=== PATIENT | female | born 1935 | race Caucasian/White ===

== ENCOUNTER 2016-08-03 08:12 | Inpatient (IN) | payer BC, OTHER ==
[2016-07-26 08:48] VITALS: BMI 21.0
--- NOTE | 2016-07-26 09:20 | PAT Medication Instructions ---
Service Date July 26, 2016. Current Home Medication List Hydrochlorothiazide (Hctz), 12.5 MG PO QAM Levothyroxine Sodium (Levothyroxine Sodium), 1 TAB PO QAM Multiple Vitamins W/ Minerals (Centrum Silver 50+Women), 1 TAB PO noon Ocuvite Preservision (Ocuvite Preservision), 1 TAB PO noon Medication Instructions For Your Scheduled Surgery - Hold the following medications the morning of surgery: Multiple Vitamins W/ Minerals (Centrum Silver 50+Women), 1 TAB PO noon Ocuvite Preservision (Ocuvite Preservision), 1 TAB PO noon Hydrochlorothiazide (Hctz), 12.5 MG PO QAM - Take the following medications the morning of surgery with a sip of water: Levothyroxine Sodium (Levothyroxine Sodium), 1 TAB PO QAM If you have any questions please call us at [phone] or [phone] ( Rain) or [phone]
[2016-07-26 09:46] LABS: BASO % 1.1 %; BASO ABS # 0.05 K/uL (0-0.2); COMPLETE YES; EOS % 2.2 %; HEMATOCRIT 41.6 % (37-47); IG% 0.2 %; LYMPH % 33.8 %; LYMPH ABS # 1.52 K/uL (1.2-3.4); MEAN CELL VOLUME 89.1 fL (80-100); MEAN CORPUSCULAR HEMOGLOBIN 29.8 pg (25-34); MEAN CORPUSCULAR HGB CONC 33.4 g/dl (32-36); MEAN PLATELET VOLUME 8.8 fL (7.4-10.4); MONO % 8.4 %; NEUT % 54.3 %; PLATELET COUNT 220 K/uL (130-400); RED BLOOD COUNT 4.67 M/uL (4.2-5.4)
[2016-07-26 09:50] LABS: URINE APPEARANCE CLEAR (CLEAR); URINE BILIRUBIN NEG (NEG); URINE COLOR YELLOW; URINE NITRITE POS (NEG); URINE PH 6.5 (4.5-7.5); UROBILINOGEN NEG (NEG)
[2016-07-26 09:52] LABS: MANUAL MICROSCOPIC REQUIRED? NO; REVIEW REQ? NO
[2016-07-26 09:56] LABS: INR 1.1 (0.9-1.1); PARTIAL THROMBOPLASTIN RATIO 1.1; PROTHROMBIN TIME (PATIENT) 11.4 SECONDS (9.0-12.0)
--- NOTE | 2016-07-26 10:18 | DIAGNOSTIC IMAGING REPORT ---
CHEST PREADMISSION(PA/LAT) CLINICAL HISTORY: Preoperative chest COMPARISON STUDY: No previous studies for comparison. FINDINGS: The cardiac and mediastinal contours are normal. There is no evidence of focal pulmonary consolidation. There is no evidence of failure. No pleural effusions are visualized.[ IMPRESSION: No active disease in the chest. Electronically signed by: Jacinto Castañeda M.D. 07/26/2016 10:17 AM Dictated Date/Time: 07/26/2016 10:17 AM
[2016-07-26 10:58] LABS: CALCIUM 8.8 mg/dl (8.5-10.1); CREATININE 0.68 mg/dl (0.60-1.20); POTASSIUM 3.8 mmol/L (3.5-5.1)
[2016-07-26 11:04] LABS: ESTIMATED AVERAGE GLUCOSE 103 mg/dl; HA1C FLAG Normal (Normal)
--- NOTE | 2016-08-02 09:55 | HISTORY & PHYSICAL EXAMINATION ---
DATE OF ADMISSION: 08/03/2016 CHIEF COMPLAINT: Right knee pain. HISTORY OF PRESENT ILLNESS: The patient is an 81-year-old female with known severe osteoarthritis about her right knee. Her pain and disability requires her to use a walker for daily ambulation. She has failed conservative care in the past and now desires to proceed with right total knee arthroplasty. PAST MEDICAL HISTORY: Hypertension, hyperthyroidism, gastroesophageal reflux disease, colitis, hypothyroidism, depressive disorder. PAST SURGICAL HISTORY: Cholecystectomy, right oophorectomy, right knee arthroscopy. MEDICATIONS: Celebrex 200 mg daily, hydrochlorothiazide 12.5 mg daily, levothyroxine 150 mcg daily, sertraline 25 mg daily. ALLERGIES: CORTISONE CAUSES HYPERACTIVITY. SOCIAL HISTORY AND REVIEW OF SYSTEMS: Noncontributory. PHYSICAL EXAMINATION: GENERAL: Well-nourished, well-developed, thin elderly female who appears her stated age. HEAD, EYES, EARS, NOSE, AND THROAT: Normocephalic, atraumatic, extraocular movements intact, oropharynx pink and moist. NECK: Supple without adenopathy. LUNGS: Clear to auscultation. HEART: Regular rate and rhythm. ABDOMEN: Soft, nontender, nondistended. EXTREMITIES: The upper extremity within normal limits. The right knee has a slight valgus alignment. She complains primarily of lateral compartment pain. Her range of motion from 0 to 130 degrees. She has mild crepitus with range of motion. X-RAYS: X-rays were reviewed. She has a slight valgus aligned knee. She has bone on bone arthritis of the lateral compartment on the flexion view. There is lateral osteophyte formation. There is moderate osteophyte formation about the patellofemoral joint. ASSESSMENT: Right knee degenerative joint disease. PLAN: Risks versus benefits were discussed. Consent was obtained. The patient's primary care physician is Dr. Dillon. Will proceed with right total knee arthroplasty upon preop workup and medical clearance.
[~2016-08-03] VITALS: Ht 162.6 cm; Wt 55.4 kg
[2016-08-03] VITALS (8 sets, daily range): BP systolic 112–195; BP diastolic 61–77; PULSE 53–69; TEMP 36.3–36.5; O2SAT 96–100; Ht 162.6 cm; Wt 55.4 kg
[~2016-08-03 08:12] MED LIST: ACETAMINOPHEN 500 MG TAB PO SCH; ATROPINE SULFATE 0.1 MG/ML 5ML SYR IV PRN; CEFAZOLIN 2000 MG/60 ML D5W 60 ML IV SCH; CeleBREX 200 MG CAP PO SCH; DEXAMETHASONE 4 MG TAB PO SCH; EpHEDrine SULFATE INJ 50 MG/ML AMP IV PRN; FAMOTIDINE 20 MG TAB PO SCH; FENTANYL CITRATE INJ 50 MCG/1 ML 2 ML VIAL IV PRN; GABAPENTIN 300 MG CAP PO SCH; HYDR12.56 PO; LACTATED RINGER'S 1000ML IV SCH; LEVO150T9 PO; METOCLOPRAMIDE HCL 10 MG TAB PO SCH; MULT-1092 PO; MULT-190 PO; ONDANSETRON INJ 2 MG/ML 2 ML VIAL IV PRN
[2016-08-03] MEDS ORDERED: MIDAZOLAM HCL 1 MG/ML 2ML VIAL ONE (09:16)
[2016-08-03] MEDS ORDERED: ONDANSETRON INJ 2 MG/ML 2 ML VIAL ONE (09:16)
[2016-08-03] MEDS ORDERED: FENTANYL CITRATE INJ 50 MCG/1 ML 2 ML VIAL ONE (09:16)
[2016-08-03] MEDS ORDERED: PROPOFOL IV EMULSION 10 MG/ML 20 ML VIAL IV ONE (09:16)
[2016-08-03] MEDS ORDERED: BUPIVACAINE 0.25% 30 ML VIAL ONE (09:20)
[2016-08-03] MEDS ORDERED: BUPIVACAINE 0.5 % 5 MG/1 ML PF 10ML VIAL ONE (09:20)
--- NOTE | 2016-08-03 10:16 | History & Physical Bridge Note ---
H&P Re-Evaluation Bridge Note: I have examined the patient, reviewed the History & Physical and in the interval since the performance of the History & Physical I have noted the following changes of clinical significance: No changes noted
[2016-08-03] MEDS ORDERED: BACITRACIN 50000 UNIT VIAL ONE (10:31)
[2016-08-03] MEDS ORDERED: ORTHO JOINT ANESTHETIC ONE (10:31)
[2016-08-03] MEDS ORDERED: POVIDONE-IODINE OP SOLN 30 ML BTL ONE (10:31)
[2016-08-03] MEDS: TRANEXAMIC ACID INJ 1,000 MG in SODIUM CHLORIDE 0.9% 100ML 100 ML IV SCH ×2 (10:42→13:42)
[2016-08-03] MEDS: ROPIVACAINE 5MG/ML 30 ML 150 MG, BUPIVACAINE/EPINEPHR 0.5% MPF 30 ML, KETOROLAC TROMETH... INFIL SCH ×14 (11:42→12:15)
--- NOTE | 2016-08-03 12:12 | [facility] Post Operative Brief Note ---
Immediate Operative Summary Operative Date August 03, 2016. Pre-Operative Diagnosis Right knee degenerative joint disease Post-Operative Diagnosis Right knee degenerative joint disease Procedure(s) Performed Right total knee arthroplasty Surgeon Dr. Roly Prince Repair Technician Surgeon(s) Royer Crane PA-C Estimated Blood Loss 20ml Findings severe oa and osteoporosis Specimens A: Right knee bone and tissue Complication(s) None Disposition Recovery Room / PACU
--- NOTE | 2016-08-03 12:29 | OPERATIVE REPORT ---
DATE OF OPERATION: 08/03/2016 PREOPERATIVE DIAGNOSIS: Osteoarthritis, right knee. POSTOPERATIVE DIAGNOSIS: Osteoarthritis, right knee. PROCEDURE: Right total knee arthroplasty. SURGEON: Dr. Prince. DISTRIBUTION AGENT: Royer Crane PA-C ANESTHESIA: Spinal. COMPLICATIONS: None. IMPLANTS USED: Femoral size 3 with the pegs, tibia size 2 with post, patella size 33, and tibial poly 9 mm. OPERATION AND FINDINGS: Following induction of spinal anesthesia, the patient's right leg was prepped and draped in the usual sterile manner. Limb was exsanguinated with an Esmarch bandage and tourniquet was inflated to 350 mmHg. A longitudinal incision was made anteriorly. Subcutaneous tissue was sharply dissected. Electrocautery was used for hemostasis. Prepatellar bursa was incised and median parapatellar incision was performed. Patella was everted and the knee was flexed. Fat pad was removed to aid in visualization and the anterior and posterior cruciate ligaments were removed. The medial face of the tibia was cleared of soft tissue first with a Bovie and a Daly elevator. This tissue was retracted posteriorly using a blunt Hohmann. A Rodriguez retractor was used to expose the synovium above on the anterior aspect of the femur and this was removed down to bone. The PSI guide was placed on the distal femur and two pins were placed anteriorly and kept in position and two additional pins were placed distally and removed. The distal femoral cutting block was placed in position and the distal femoral cut was used in the +0 setting. Next, the cutting block was removed and the 3 block was placed in the distal end of the femur. Care was taken to ensure appropriate external rotation and feeler gauge was used to ensure no notching would occur. The femoral block was centered on the distal femur and in the medial and lateral direction and was fixed using two bone screws. The gold pins were then removed. The oscillating saw was used to create the bone cuts and the distal femoral cutting block was removed and the reciprocating saw was used to further trim the femoral cuts as well as a deep in the area for the trochlear groove. Next, posterior condyle remnants were removed. Following this, a meniscal clamp and knife were utilized to remove the anterior portion of both medial and lateral meniscus. The proximal tibia PSI guide was placed into position and the proximal tibial cutting guide was screwed into position. The extra medullary alignment guide was utilized to ensure appropriate alignment. The proximal tibia was cut and the proximal tibial cutting block was removed and this bone fragment was removed. The appropriate guide was used to perform the notch cut on the distal femur and a lamina clinical engineering director and a cochlear knife were utilized to finish both medial and lateral meniscectomies to remove any remnants of the posterior or anterior cruciate ligaments. Following this, the distal femoral component was impacted into position and blunt Darien was used to sublux the tibia anteriorly. The proximal tibia was sized and a size 2 tibial tray was chosen as the size to be used. This was put into position and appropriate external rotation and a double check with extramedullary alignment guide was performed. The canal for the tibial stem was prepared first with a 17 mm drill and then the punch and a mallet and the trial tibial poly was placed. A size 9 was chosen the size to be used. It was brought to extension and the patella was prepared with the patellar reamer. A 33 component was chosen the size to be used. The trial component was placed and knee was taken through a full range of motion and there was found to be no lateral subluxation of the tibia. No lateral release was required. The trials were all removed. The final components were obtained and assembled. Cement was mixed. The knee was thoroughly irrigated and the ortho mix was injected about the knee joint. The final components were cemented into position. After thoroughly suctioning and drying the bone ends, all excess cement was removed. The knee was held in extension while the cement hardened. The wound was irrigated and closed over a Hemovac drain. #1 Vicryl was used to close the extensor mechanism. Subcutaneous tissues closed using 0 Dexon. Skin was closed with davie. Sterile dressing of Adaptic, 4 x 4's, sterile Webril, and Luis was applied. The patient tolerated the procedure well. Due to the complex nature of the procedure, the entire surgery was performed with the operational assistance of Royer Crane PA-C. The prosthetics assistant, under direct supervision, was involved in the actual performance of all aspects of the surgical procedure including hemostasis, tissue retraction and incision, instrument management, patient positioning, and wound closure. DISPOSITION: Recovery room stable. I attest to the content of the Intraoperative Record and any orders documented therein. Any exceptio ns are noted below.
[2016-08-03] MEDS ORDERED: ONDANSETRON INJ 2 MG/ML 2 ML VIAL IV PRN (12:45)
[2016-08-03] MEDS ORDERED: MoRPHine SULFATE 2 MG/ML CARP IV PRN (12:45)
[2016-08-03] MEDS ORDERED: ZOLPIDEM TARTRATE 5 MG TAB PO PRN (12:45)
[2016-08-03] MEDS ORDERED: ALUMINUM/MAGNESIUM/SIMETH (MAALOX MAX) 30 ML UDC PO PRN (12:45)
[2016-08-03] MEDS ORDERED: METOCLOPRAMIDE HCL INJ 5 MG/ML 2 ML VIAL IV PRN (12:45)
[2016-08-03] MEDS ORDERED: OXYCODONE HCL IR 5 MG TAB (IMMEDIATE RELEASE) PO PRN (12:45)
[2016-08-03] MEDS ORDERED: MAGNESIUM HYDROXIDE SUSP 30 ML UDC PO PRN (12:45)
--- NOTE | 2016-08-03 13:06 | DIAGNOSTIC IMAGING REPORT ---
RIGHT KNEE 2 VIEWS History: Right total knee arthroplasty. Degenerative arthritis. Postop. FINDINGS: The patient is status post a right total knee arthroplasty. The hardware is intact. No fracture or dislocation. Skin davie and surgical drains are in place. IMPRESSION: Right total knee arthroplasty. No evidence for hardware complication. Electronically signed by: Naveen Lanza M.D. 08/03/2016 1:04 PM Dictated Date/Time: 08/03/2016 1:04 PM
--- NOTE | 2016-08-03 13:15 | Anesthesiology Progress Note ---
Anesthesia Post Op Note Date & Time August 03, 2016 at 13:15 Vital Signs Pain Intensity: 0 Vital Signs Past 12 Hours Date Time Temp Pulse Resp B/P Pulse Ox O2 Delivery O2 Flow Rate FiO2 08/03/16 12:55 66 16 136/56 100 Mask 10 08/03/16 12:45 58 16 122/47 98 Mask 10 08/03/16 12:38 36.0 62 16 105/50 98 Mask 10 08/03/16 09:01 36.4 69 20 195/72 99 Room Air Notes Mental Status: alert / awake / arousable, participated in evaluation Pt Amnestic to Procedure: Yes Nausea / Vomiting: adequately controlled Pain: adequately controlled Airway Patency, RR, SpO2: stable & adequate BP & HR: stable & adequate Hydration State: stable & adequate Neuraxial Anesthesia: was administered, sensory block is resolving Anesthetic Complications: no major complications apparent
[2016-08-03] MEDS ORDERED: MoRPHine SULFATE 4 MG/ML 1 ML CARP\\VIAL IV PRN (14:45)
[2016-08-03] MEDS: D5W AND 1/2NSS + 20MEQ KCL 1,000 ML IV SCH (16:58)
[2016-08-03] MEDS: KETOROLAC TROMETHAMINE 15 MG/ML VIAL IV. SCH ×2 (16:58→21:28)
[2016-08-03] MEDS: FERROUS GLUCONATE 324 MG TAB PO SCH (16:59)
[2016-08-03] MEDS: CEFAZOLIN IV 1,000 MG in DEXTROSE 5% 50ML 50 ML IV SCH (18:48)
[2016-08-03] MEDS: ACETAMINOPHEN 500 MG TAB PO SCH (18:48)
[2016-08-03] MEDS: DOCUSATE SODIUM 100 MG CAP PO SCH (21:00)
[2016-08-03] MEDS: ASPIRIN 81 MG ECTAB PO SCH (21:27)
[2016-08-04] MEDS: D5W AND 1/2NSS + 20MEQ KCL 1,000 ML IV SCH ×2 (01:44→10:40)
[2016-08-04] MEDS: CEFAZOLIN IV 1,000 MG in DEXTROSE 5% 50ML 50 ML IV SCH (01:44)
[2016-08-04] MEDS: ACETAMINOPHEN 500 MG TAB PO SCH ×3 (01:47→18:02)
[2016-08-04 03:23] VITALS: BP 92/47; PULSE 60; TEMP 36.5; O2SAT 95
[2016-08-04] MEDS: KETOROLAC TROMETHAMINE 15 MG/ML VIAL IV. SCH (03:58)
[2016-08-04] MEDS: LEVOTHYROXINE 150 MCG TAB PO SCH (05:40)
[2016-08-04 06:32] LABS: HEMATOCRIT 30.4 % (37-47); MEAN CELL VOLUME 88.6 fL (80-100); MEAN CORPUSCULAR HGB CONC 33.9 g/dl (32-36); MEAN PLATELET VOLUME 9.1 fL (7.4-10.4); PLATELET COUNT 200 K/uL (130-400); RED BLOOD COUNT 3.43 M/uL (4.2-5.4); WHITE BLOOD COUNT 12.52 K/uL (4.8-10.8)
[2016-08-04 07:04] LABS: BUN/CREATININE RATIO 28.5 (10-20); CALCIUM 7.8 mg/dl (8.5-10.1); CREATININE 0.93 mg/dl (0.60-1.20); POTASSIUM 4.3 mmol/L (3.5-5.1)
[2016-08-04 07:48] VITALS: BP 108/51; PULSE 62; TEMP 36.4; O2SAT 96
--- NOTE | 2016-08-04 08:13 | Anesthesiology Progress Note ---
Anesthesia Post Op Note Date & Time August 04, 2016 at 08:14 Vital Signs Pain Intensity: 0.0 Vital Signs Past 12 Hours Date Time Temp Pulse Resp B/P Pulse Ox O2 Delivery O2 Flow Rate FiO2 08/04/16 07:48 36.4 62 18 108/51 96 Room Air 08/04/16 07:32 Room Air 08/04/16 03:23 36.5 60 16 92/47 95 Room Air 08/03/16 23:26 36.5 56 16 126/67 97 Room Air 08/03/16 23:15 Room Air Notes Mental Status: alert / awake / arousable, participated in evaluation Pt Amnestic to Procedure: Yes Nausea / Vomiting: adequately controlled Pain: adequately controlled Airway Patency, RR, SpO2: stable & adequate BP & HR: stable & adequate Hydration State: stable & adequate Neuraxial Anesthesia: was administered, sensory block resolved Anesthetic Complications: no major complications apparent
--- NOTE | 2016-08-04 08:37 | Orthopedic Progress Note ---
Orthopedic Progress Note Date of Service August 04, 2016. Subjective Post OP Day: 1 Reports: complaints ("my foot is numb"), feeling well, Denies: SOB, calf pain, chest pain, light headedness, nausea / vomiting Additional Notes: Awake, alert. States that her foot is numb and she is unable to move it. [place] that she was able to move her toes a little yesterday but today she is unable to. No other complaints. Pain controlled at present. Objective calves soft nontender, dressing C/D/I, A&O x3, toes mobile, hemovac drainage ( 130ml latest shift) Date Time Temp Pulse Resp B/P Pulse Ox O2 Delivery O2 Flow Rate FiO2 08/04/16 07:48 36.4 62 18 108/51 96 Room Air 08/04/16 07:32 Room Air 08/04/16 03:23 36.5 60 16 92/47 95 Room Air 08/03/16 23:26 36.5 56 16 126/67 97 Room Air 08/03/16 23:15 Room Air 08/03/16 20:04 36.3 63 16 130/70 96 Room Air 08/03/16 17:09 36.3 56 18 145/75 99 Nasal Cannula 2.0 08/03/16 16:15 Nasal Cannula 2.0 08/03/16 16:10 36.3 55 16 112/61 100 Nasal Cannula 2.0 08/03/16 15:00 56 18 128/77 99 2.0 08/03/16 14:28 53 18 123/65 98 Nasal Cannula 2.0 08/03/16 14:00 99 Nasal Cannula 2.0 08/03/16 14:00 99 Nasal Cannula 2.0 08/03/16 14:00 36.4 57 12 114/65 99 Nasal Cannula 2.0 08/03/16 13:30 36.3 54 14 119/50 98 Nasal Cannula 2 08/03/16 13:15 56 12 139/61 99 Mask 10 08/03/16 13:05 53 12 133/50 100 Mask 10 08/03/16 12:55 66 16 136/56 100 Mask 10 08/03/16 12:45 58 16 122/47 98 Mask 10 08/03/16 12:38 36.0 62 16 105/50 98 Mask 10 08/03/16 09:01 36.4 69 20 195/72 99 Room Air Laboratory Results 24 Hours: Test 08/04/16 05:46 Hematocrit 30.4 % Hemoglobin 10.3 g/dL Assessment & Plan Assessment: POD 1 s/p Right TKA Foot drop Hypertension, hyperthyroidism, gastroesophageal reflux disease, colitis, hypothyroidism, depressive disorder Plan: Foot drop likely due to intra op injection - follow for now. Sensation/ movement usually returns in 48 hours. May need AFO brace if it continues. PT/OT Trying to decide btw Home Health or OPPT - CM to discuss with her. Inhouse Planning Pain Management: Celebrex, Toradol, Morphine, PO Tylenol, Oxy IR DVT Prophylaxis: TEDs, SCDs, ASA Discharge Planning Discharge Planning: uncertain Pain Management: Celebrex, PO Tylenol, Oxy IR DVT Prophylaxis: TEDs, ASA Therapy: Physical Therapy
[2016-08-04] MEDS: FERROUS GLUCONATE 324 MG TAB PO SCH ×3 (08:43→18:02)
[2016-08-04] MEDS: CEROVITE ADV FORMULA TAB PO SCH (08:43)
[2016-08-04] MEDS: DOCUSATE SODIUM 100 MG CAP PO SCH ×2 (08:44→22:12)
[2016-08-04] MEDS: HYDROCHLOROTHIAZIDE 25 MG TAB PO SCH (08:44)
[2016-08-04] MEDS: PANTOprazole SOD 40 MG TAB PO SCH (08:44)
[2016-08-04] MEDS: ASPIRIN 81 MG ECTAB PO SCH ×2 (08:44→22:13)
[2016-08-04] MEDS ORDERED: MULTIVITAMIN TAB PO SCH (09:00)
[2016-08-04 15:51] VITALS: BP 108/64; PULSE 61; TEMP 36.3; O2SAT 100
[2016-08-04] MEDS: CeleBREX 200 MG CAP PO SCH (22:13)
[2016-08-04 23:15] VITALS: BP 132/64; PULSE 64; TEMP 36.4; O2SAT 98
[2016-08-05] MEDS: ACETAMINOPHEN 500 MG TAB PO SCH ×2 (02:00→10:32)
[2016-08-05] MEDS: LEVOTHYROXINE 150 MCG TAB PO SCH (05:32)
[2016-08-05 07:33] VITALS: BP 96/46; PULSE 59; TEMP 36.5; O2SAT 96
--- NOTE | 2016-08-05 08:23 | Orthopedic Progress Note ---
Orthopedic Progress Note Date of Service August 05, 2016. Subjective Post OP Day: 2 Reports: feeling well, pain controlled w PO medications, Denies: SOB, chest pain , complaints, light headedness, nausea / vomiting Objective calves soft nontender, N/V intact (FOOT DROP RESOLVED ), dressing C/D/I (MOD DRAINAGE ON SILVERLON ), toes mobile Date Time Temp Pulse Resp B/P Pulse Ox O2 Delivery O2 Flow Rate FiO2 08/05/16 07:15 Room Air 08/04/16 23:20 Room Air 08/04/16 23:15 36.4 64 16 132/64 98 Room Air 08/04/16 15:51 36.3 61 17 108/64 100 Room Air 08/04/16 15:30 Room Air Assessment & Plan Assessment: POD 2 s/p Right TKA Foot drop RESOLVED Hypertension, hyperthyroidism, gastroesophageal reflux disease, colitis, hypothyroidism, depressive disorder Plan: Foot drop likely due to intra op injection - RESOLVED PT/OT HOME W OPPT Inhouse Planning Pain Management: Celebrex, Toradol, Morphine, PO Tylenol, Oxy IR DVT Prophylaxis: TEDs, SCDs, ASA Discharge Planning Discharge Planning: home with oppt Pain Management: Celebrex, PO Tylenol, Oxy IR DVT Prophylaxis: TEDs, ASA Therapy: Physical Therapy
[2016-08-05] MEDS: FERROUS GLUCONATE 324 MG TAB PO SCH (08:32)
[2016-08-05] MEDS: DOCUSATE SODIUM 100 MG CAP PO SCH (08:33)
[2016-08-05] MEDS: CEROVITE ADV FORMULA TAB PO SCH (08:33)
[2016-08-05] MEDS: PANTOprazole SOD 40 MG TAB PO SCH (08:34)
[2016-08-05] MEDS: HYDROCHLOROTHIAZIDE 25 MG TAB PO SCH (08:35)
[2016-08-05] MEDS: CeleBREX 200 MG CAP PO SCH (09:05)
[2016-08-05] MEDS: ASPIRIN 81 MG ECTAB PO SCH (09:05)
[2016-08-05] MEDS ORDERED: ACET-1138 PO (09:08)
[2016-08-05] MEDS ORDERED: RXC5 PO (09:08)
[2016-08-05] MEDS ORDERED: ASPEC81 PO (09:08)
[2016-08-05] MEDS ORDERED: OXYSR10 PO (09:08)
[2016-08-05] MEDS ORDERED: ONDA8TAB6 PO (09:08)
[2016-08-05] MEDS ORDERED: CLB200 PO (09:08)
--- NOTE | 2016-08-05 09:10 | Discharge Instructions ---
Discharge Instructions Date of Service August 05, 2016. Admission Reason for Admission: Right Knee Osteoarthritis Discharge Discharge Diagnosis / Problem: right knee osteoarthritis Discharge Goals Goal(s): Decrease discomfort, Improve function Activity Recommendations Activity Limitations: per Instructions/Follow-up section . Instructions / Follow-Up Instructions / Follow-Up ACTIVITY RECOMMENDATIONS: SELF CARE INSTRUCTIONS AFTER TOTAL KNEE REPLACEMENT A. You may need to continue a physical therapy program after discharge from the hospital. There are several options available to you. Your doctor will assist you in selecting the best one for you. 1. An out-patient facility 3 times a week for therapy. 2. Home therapy for 1 to 2 weeks with outpatient therapy to follow. 3. Continue working on all exercises taught by physical therapy three times a day for 20 minutes on non-therapy days. Your goals should be to increase the bending of your knee to 90 degrees and beyond and to fully straighten your knee. Ice and elevate knee after exercise. B. Weight as tolerated with a walker or as instructed by your physician. C. It is okay to shower if minimal to no drainage from incision. No Baths. Do not soak wound. D. Make walking a part of your daily routine. Be up as much as comfortable with rest periods throughout the day. Rest with leg elevation is very important. Use the ice wrap frequently for the first 3-4 weeks. E. There are no restrictions on activities. You may ride in a car, shop, participate in bell tier and all social activities. F. Wear the long elastic stockings (SANTOSH hose) 20 hours a day for one month after surgery. They can be removed several times a day for laundering and when showering. G. Silverlon- This is a large adhesive bandage that contains silver ions. This helps your incision heal by fighting off bacteria and protecting it from the outside environment. You are permitted to shower with this dressing. This will remain on your incision for 7 days and then should be removed. Some visible blood or drainage through the dressing window is normal. If there is significant drainage or leaking noted before the 7 days notify your doctor's office immediately. Once removed, keep incision clean and dry. If there is any drainage or redness noted, please call your surgeon. SPECIAL CARE INSTRUCTIONS: VERY IMPORTANT TO READ AND REVIEW A. Take Aspirin (blood thinning medications) as directed by your doctor. If on Coumadin, have a pro-time (blood test) drawn according to your doctor's instructions. This will tell the doctor how well the Coumadin is thinning your blood. B. There are a few signs you need to watch for after you are home. Call [facility] if you notice any of the followin. Increased severe knee pain. Some pain is expected especially when you exercise. 2. Increased swelling in your leg or knee; pain or swelling of the calf muscle in either lower leg. 3. Any redness or fluid drainage from the incision. 4. Shortness of breath or chest pain. 5. A Temperature of 101 degrees F or greater. C. Please call [facility] at if you have any concerns or questions about your operation or recovery. The doctor or his nurse will return your call promptly. D. You must take antibiotics before dental work, bladder, bowel or other surgery. Your doctor will provide you with a permanent care to carry describing this precaution. FOLLOW UP VISIT: If appointment is not already scheduled: Please call [facility] to make a follow-up appointment for one month after your surgery at . Current Hospital Diet Patient's current hospital diet: Regular Diet Discharge Diet Recommended Diet: Regular Diet Procedures Procedures Performed: Right Total Knee Arthroplasty - Cemented Pending Studies Studies pending at discharge: no Laboratory Results Hemoglobin A1c Test 07/26/16 09:30 Range/Units Estimated Average Glucose 103 mg/dl Hemoglobin A1c 5.2 4.5-5.6 % Medical Emergencies . Who to Call and When: Medical Emergencies: If at any time you feel your situation is an emergency, please call 911 immediately. . Non-Emergent Contact Non-Emergency issues call your: Surgeon Call Non-Emergent contact if: temperature is above 101, your pain is not controlled, your pain is worsening, wound has increased drainage, wound has increased redness . "Provider Documentation" section prepared by Catarino Palm. . VTE Core Measure Inpt VTE Proph given/why not?: Other Anticoagulation, T.E.D. Stockings
[2016-08-05] MEDS ORDERED: ACETAMINOPHEN 500 MG TAB PO ONE (10:30)
[2016-08-05 11:23] VITALS: BP 96/46; PULSE 59; TEMP 36.5; O2SAT 96
--- NOTE | 2016-08-18 10:42 | DISCHARGE SUMMARY ---
CHIEF COMPLAINT: Right knee pain. Please see complete history and physical examination. HOSPITAL COURSE: The patient underwent right total knee arthroplasty without complication. She tolerated the procedure well and was discharged to recovery room in stable condition. Her postoperative course was relatively uneventful. Her postoperative pain was reasonably well controlled with a combination of spinal anesthesia, adductor canal block, intraoperative joint injection, IV, and oral pain medications. She was started on aspirin for DVT prophylaxis. She also utilized SANTOSH stockings and SCDs for additional prophylaxis. Her H&H was stable and did not require transfusion. Her surgical drain was discontinued by postoperative day 2. Her surgical dressing will remain in place for approximately 7 days postoperative. She tolerated postoperative physical therapy reasonably well where she was bending her knee and ambulating appropriately. She was discharged home on postoperative day 2. She will continue her physical therapy as an outpatient. She will continue her aspirin for DVT prophylaxis and follow up in our office in approximately 10-14 days for initial postop evaluation.
== END 2016-08-05 11:30 | disposition home or self-care (01) | DRG 470 ==
LOC: ENRESERVDT → ENRESERVTM → C.ACU 08:12 → C.3E 10:11
PROC: 0SRC0J9 Replacement of Right Knee Joint with Synthetic Substitute, Cemented, Open Approach (ICD-10-PCS; principal; 2016-08-03 11:30)
DX: M17.11 Unilateral primary osteoarthritis, right knee (principal); I10 Essential (primary) hypertension; F32.9 Major depressive disorder, single episode, unspecified; E05.90 Thyrotoxicosis, unspecified without thyrotoxic crisis or storm; E03.9 Hypothyroidism, unspecified; Z79.899 Other long term (current) drug therapy